=== PATIENT | male | born 1975 | race Caucasian/White ===

== ENCOUNTER 2017-10-20 15:53 | Emergency (ER) | payer BC ==
[~2017-10-20] VITALS: Ht 177.8 cm; Wt 81.6 kg
[~2017-10-20 15:53] MED LIST: CLINDAMYCIN HC300 MG PO; KEFLEX500 MG PO; MEDROL DOSEPAK4 MG PO; PREDNISONE50 MG PO; VICODIN 5/500 505 MG PO; ZITHROMAX Z PA250 MG PO
[2017-10-20] MEDS ORDERED: AMOXICILLIN500 M2 PO (17:58)
[2017-10-20] MEDS ORDERED: ROBITUSSIN DM 105 ML PO (17:58)
== END 2017-10-20 18:02 | disposition home or self-care (01) ==
LOC: ED 15:53
DX: J20.9 Acute bronchitis, unspecified (principal); L51.8 Other erythema multiforme; F17.200 Nicotine dependence, unspecified, uncomplicated; Z79.899 Other long term (current) drug therapy

== ENCOUNTER 2019-01-10 15:44 | Emergency (ER) | payer BC ==
[~2019-01-10] VITALS: Ht 182.8 cm; Wt 83.9 kg
[~2019-01-10 15:44] MED LIST changes: +AMOXICILLIN500 M2 PO; +ROBITUSSIN DM 105 ML PO
[2019-01-10] MEDS ORDERED: MEDROL DOSEPAK4 MG PO (16:03)
[2019-01-10] MEDS ORDERED: BENADRYL25 M2 PO (16:04)
== END 2019-01-10 16:08 | disposition home or self-care (01) ==
LOC: ED 15:44
DX: L25.9 Unspecified contact dermatitis, unspecified cause (principal); F17.200 Nicotine dependence, unspecified, uncomplicated

== ENCOUNTER 2019-01-17 00:50 | Emergency (ER) | payer BC ==
[~2019-01-17] VITALS: Ht 185.4 cm; Wt 84.0 kg
[~2019-01-17 00:50] MED LIST changes: +BENADRYL25 M2 PO
[2019-01-17] MEDS ORDERED: VIBRAMYCIN100 MG PO (02:35)
== END 2019-01-17 02:49 | disposition home or self-care (01) ==
LOC: ED 00:50
DX: L08.89 Other specified local infections of the skin and subcutaneous tissue (principal)

== ENCOUNTER 2019-02-19 13:17 | Emergency (ER) | payer BC ==
[~2019-02-19] VITALS: Ht 182.8 cm; Wt 88.5 kg
[~2019-02-19 13:17] MED LIST changes: +VIBRAMYCIN100 MG PO
[2019-02-19] MEDS ORDERED: PROVENTIL HFA6.7 GM INH (14:30)
[2019-02-19] MEDS ORDERED: PREDNISONE20 M1 PO (14:30)
[2019-02-19] MEDS ORDERED: DOXYCYCLINE100 M3 PO (14:30)
[2019-02-19] MEDS ORDERED: TESSALON PERLE100 M1 PO (14:30)
== END 2019-02-19 14:35 | disposition home or self-care (01) ==
LOC: ED 13:17
DX: J20.9 Acute bronchitis, unspecified (principal); F17.200 Nicotine dependence, unspecified, uncomplicated

== ENCOUNTER → 2020-03-14 | Outpatient (CLI) | payer BC ==
[~2020-03-14] MED LIST changes: +DOXYCYCLINE100 M3 PO; +PREDNISONE20 M1 PO; +PROVENTIL HFA6.7 GM INH; +TESSALON PERLE100 M1 PO
== END | disposition home or self-care (01) ==
LOC: COVID19 10:45
PROVIDERS: ATTEND Family Medicine
DX: R05 Cough (principal); R06.2 Wheezing; Z20.828 Contact with and (suspected) exposure to other viral communicable diseases